=== PATIENT | female | born 1995 ===

== ENCOUNTER 2017-08-05 16:37 | Emergency (ER) | payer BC ==
[2017-08-05 16:46] VITALS: BP 132/91
--- NOTE | 2017-08-05 17:17 | UC ---
Travis Man Gabriel, scribed for Melissa Guerra MD on 08/05/17 at 1658 . Complaint Female HPI - HPI Summary HPI Summary: This patient is a 22 year old F presenting to [facility] [place] with a chief complaint of a possible UTI that began yesterday. The patient rates the pain 4/10 in severity. Patient reports increased frequency, dysuria, hematuria, and mild suprapubic pain. Patient denies vaginal discharge, fever, chills, and vaginal discomfort. Pt had a UTI a couple years ago where she had hematuria. - History Of Current Complaint Chief Complaint: UCGU Stated Complaint: POSS UTI Time Seen by Provider: 08/05/17 16:55 Hx Obtained From: Patient Hx Last Menstrual Period: 09/27/14 Onset/Duration: Still Present Timing: Constant Severity Initially: Mild Severity Currently: Mild Pain Intensity: 4 Pain Scale Used: 0-10 Numeric Associated Signs And Symptoms: Negative: Fever, Vaginal Bleeding/Discharge, Vaginal Discharge - Allergies/Home Medications Allergies/Adverse Reactions: Allergies Allergy/AdvReac Type Severity Reaction Status Date / Time codeine Allergy Hives Verified 08/05/17 16:47 PMH/Surg Hx/FS Hx/Imm Hx Previously Healthy: Yes Respiratory History: Other Other Respiratory History: seasonal allergies GI/ History: Other Other GI/ History: UTI - Surgical History Surgical History: Yes Surgery Procedure, Year, and Place: bilat ear tubes - Family History Known Family History: Positive: Diabetes - father, Other - breast CA Negative: Respiratory Disease, Seizure Disorder - Social History Occupation: Student Lives: Dormitory/Roommates Alcohol Use: Occasionally Substance Use Type: None Smoking Status (MU): Never Smoked Tobacco Review of Systems Constitutional: Negative Skin: Negative Eyes: Negative ENT: Negative Respiratory: Negative Cardiovascular: Negative Gastrointestinal: Abdominal Pain Genitourinary: Dysuria, Hematuria, Frequency Motor: Negative Neurovascular: Negative Musculoskeletal: Negative Neurological: Negative Psychological: Negative All Other Systems Reviewed And Are Negative: Yes Physical Exam Triage Information Reviewed: Yes Appearance: Well-Appearing, No Pain Distress Vital Signs: Initial Vital Signs Temp 99.1 F 08/05/17 16:42 Pulse 66 08/05/17 16:42 Resp 18 08/05/17 16:42 BP 132/91 08/05/17 16:42 Pulse Ox 99 08/05/17 16:42 Neck exam: Normal Respiratory: Positive: Lungs clear, Normal breath sounds Cardiovascular: Positive: RRR, No Murmur Abdomen Description: Positive: Nontender, No Organomegaly, Soft. Negative: CVA Tenderness (R), CVA Tenderness (L) Musculoskeletal Exam: Normal Psychological Exam: Normal Skin Exam: Normal Diagnostics - Laboratory Diagnostic Studies Completed/Ordered: UA with WBC, RBC and nitrites. Complaint Female Dx - Course Course Of Treatment: macrodantin for UTI - Differential Dx/Diagnosis Provider Diagnoses: UTI Discharge - Sign-Out/Discharge Documenting (check all that apply): Discharge/Admit/Transfer - Discharge Plan Condition: Stable Disposition: HOME Prescriptions: Nitrofurantoin Monohyd/M-Cryst [Macrobid 100 mg Capsule] 100 mg PO BID #14 cap Patient Education Materials: Urinary Tract Infection in Women (ED) Referrals: No Primary Care Phys,NOPCP [Primary Care Provider] - Additional Instructions: Begin macrbid for treatment of suspected urinary tract infection. You should notice an improvement in symptoms in 1 to 2 days. The results of the culture will be available in 2 to 3 days; you can call to confirm that the treatment is correct, but you will be notified if a change of antibiotics is needed. - Billing Disposition and Condition Condition: STABLE Disposition: HOME The documentation as recorded by the Travis conway Gabriel accurately reflects the service I personally performed and the decisions made by me, Melissa Guerra MD.
== END 2017-08-05 17:23 | disposition home or self-care (01) ==
LOC: UCEAST 16:37
DX: N39.0 Urinary tract infection, site not specified (principal); R31.9 Hematuria, unspecified; Z87.440 Personal history of urinary (tract) infections; Z88.5 Allergy status to narcotic agent
CPT/HCPCS: 81003; 87077; 87086; 87186; 99212; G0463